=== PATIENT | female | born 1960 | race African-American/Black ===

== ENCOUNTER 2017-11-09 23:04 | Emergency (ER) | payer OTHER ==
[~2017-11-09] VITALS: Ht 160 cm; Wt 52.2 kg
--- NOTE | ~2017-11-09 | EKG ---
[place] [address] [facility] [place] [address] ELECTROCARDIOGRAM REPORT Name: MILADY NGUYEN [id number] Admission: 11/09/17 Attend Phys: Discharge: 11/10/17 Date of : 60 Report #: [id number] THIS REPORT FOR: //name// [facility] ED Test Date: 2017-11-09 Test Time: 23:16:18 Pat Name: MILADY NGUYEN Department: Room: Gender: F Zoning Assistant: [email or web address] : 1960 Requested By: Sybil Gaines Order Number: [id number] MD: Mike Gonzales Measurements Intervals [place] Rate: 58 P: 42 [place]: 108 QRS: 82 QRSD: 93 T: 55 QT: 448 QTc: 441 Interpretive Statements Sinus bradycardia Borderline T abnormalities, anterior leads Compared to ECG 08/16/2013 10:17:56 Short [place] interval now present T-wave abnormality now present Electronically Signed On 11-12-2017 8:19:43 CDT by Mike Gonzales [email or web address] <ELECTRONICALLY SIGNED> By: Mike Gonzales MD, [facility] 11/12/17818 15 Mike Gonzales MD, [facility] /EPI
[~2017-11-09 23:04] MED LIST: ALBUTEROL2.5 MG/0.5 IH; ALBUTEROL2.5 MG/31 IH; ALBUTEROL2.5 MG/31 INH; BACTRIM DS TAB1 EACH PO; CELEXA40 MG PO; NORVASC10 MG PO; PREDNISONE 20 M20 MG PO; SYMBICORT160 MCG/4. INH; VENTOLIN HFA 1818 GM INH
[2017-11-10 00:02] LABS: ABSOLUTE NEUTROPHILS 3.6 thou/uL (1.4-8.2); BASOPHILS 1.2 % (0.0-2.0); EOSINOPHILS 5.4 % (0.0-3.0); HEMATOCRIT 39.6 % (37.0-47.0); HEMOGLOBIN 13.3 gm/dL (12.0-15.0); MCH 29.1 pg (26.0-34.0); MCHC 33.6 g/dL (28.0-37.0); MCV 86.7 fL (80.0-100.0); MONOCYTES 10.8 % (1.0-8.0); PLATELET COUNT 173 thou/uL (150-400); POLYS 56.6 % (36.0-66.0); RBC 4.57 mil/uL (4.20-5.00); WBC 6.4 thou/uL (4.0-11.0)
[2017-11-10 00:09] LABS: ANION GAP 11 mmol/L (7-16); BUN 12 mg/dL (7-18); CALCIUM 9.1 mg/dL (8.5-10.1); CHLORIDE 103 mmol/L (98-107); CO2 23 mmol/L (21-32); GLUCOSE 107 mg/dL (74-106); POTASSIUM 3.7 mmol/L (3.5-5.1); SODIUM 137 mmol/L (136-145)
[2017-11-10 00:18] LABS: TROPONIN-I <0.06 ng/mL (<0.06)
[2017-11-10] MEDS ORDERED: PROVENTIL HFA6.7 G1 INH (00:39)
[2017-11-10] MEDS ORDERED: VALIUM5 MG PO (00:39)
[2017-11-10 01:04] VITALS: BP 156/98
== END 2017-11-10 01:05 | disposition home or self-care (01) ==
LOC: ER 23:04
PROVIDERS: Emergency Medicine
DX: F41.0 Panic disorder [episodic paroxysmal anxiety] (principal); J45.909 Unspecified asthma, uncomplicated; M54.41 Lumbago with sciatica, right side; I10 Essential (primary) hypertension; F32.9 Major depressive disorder, single episode, unspecified; F17.210 Nicotine dependence, cigarettes, uncomplicated; Z88.1 Allergy status to other antibiotic agents; Z88.0 Allergy status to penicillin; Z88.8 Allergy status to other drugs, medicaments and biological substances; Z98.890 Other specified postprocedural states

== ENCOUNTER 2019-06-07 18:52 | Emergency (ER) | payer MEDICARE, OTHER ==
[~2019-06-07] VITALS: Ht 160 cm; Wt 48.5 kg
[~2019-06-07 18:52] MED LIST changes: +PROVENTIL HFA6.7 G1 INH; +VALIUM5 MG PO
[2019-06-07] MEDS ORDERED: NORCO 5-325 TA1 EAC1 PO (20:44)
[2019-06-07 20:59] VITALS: BP 148/81
== END 2019-06-07 21:00 | disposition home or self-care (01) ==
LOC: ER 18:52
DX: S00.83XA Contusion of other part of head, initial encounter (principal); S30.0XXA Contusion of lower back and pelvis, initial encounter; M54.5 Low back pain; M54.6 Pain in thoracic spine; J44.9 Chronic obstructive pulmonary disease, unspecified; I10 Essential (primary) hypertension; F17.210 Nicotine dependence, cigarettes, uncomplicated; Z79.899 Other long term (current) drug therapy; Z88.1 Allergy status to other antibiotic agents; Z88.0 Allergy status to penicillin; Z88.8 Allergy status to other drugs, medicaments and biological substances; Y08.89XA Assault by other specified means, initial encounter; Y93.89 Activity, other specified; Y92.89 Other specified places as the place of occurrence of the external cause; Y99.8 Other external cause status

== ENCOUNTER 2020-02-01 21:15 | Emergency (ER) | payer OTHER ==
[~2020-02-01] VITALS: Ht 162.6 cm; Wt 49.0 kg
[~2020-02-01 21:15] MED LIST changes: +NORCO 5-325 TA1 EAC1 PO
[2020-02-01 22:08] LABS: HEMATOCRIT 47.5 % (37.0-47.0); HEMOGLOBIN 15.4 gm/dL (12.0-15.0); LYMPHOCYTES 24.6 % (24.0-44.0); MCH 29.4 pg (26.0-34.0); MCHC 32.5 g/dL (28.0-37.0); MCV 90.5 fL (80.0-100.0); MONOCYTES 9.7 % (1.0-8.0); PLATELET COUNT 225 thou/uL (150-400); POLYS 45.7 % (36.0-66.0); RBC 5.25 mil/uL (4.20-5.00); RDW 13.2 % (10.5-14.5); WBC 6.5 thou/uL (4.0-11.0)
[2020-02-01 22:18] LABS: ANION GAP 11 mmol/L (7-16); BUN 16 mg/dL (7-18); CALCIUM 9.1 mg/dL (8.5-10.1); CHLORIDE 105 mmol/L (98-107); CO2 23 mmol/L (21-32); CREATININE 1.1 mg/dL (0.6-1.0); GLUCOSE 93 mg/dL (74-106); POTASSIUM 4.1 mmol/L (3.5-5.1); SODIUM 139 mmol/L (136-145)
[2020-02-01 22:28] LABS: ALBUMIN 4.1 g/dL (3.4-5.0); SGOT 28 U/L (15-37); SGPT 22 U/L (30-65); TOTAL BILIRUBIN 0.5 mg/dL (0.2-1.0); TOTAL PROTEIN 7.5 g/dL (6.4-8.2); TROPONIN-I <0.06 ng/mL (<0.06)
[2020-02-01 22:43] LABS: BE(vivo) -1.5 mmol/L (-2 to +3); PCO2 33.6 mmHg (35.0-45.0); PO2 60.3 mmHg (80.0-100.0); pH 7.433 (7.360-7.450); sO2 92.1 % (92.0-98.0)
[2020-02-01] MEDS ORDERED: DOXYCYCLINE 10100 MG PO (23:46)
[2020-02-01] MEDS ORDERED: PREDNISONE 20 M20 MG PO (23:46)
[2020-02-01] MEDS ORDERED: ALBUTEROL2.5 MG/31 INH (23:46)
[2020-02-02 00:10] VITALS: BP 173/99
--- NOTE | 2020-02-02 07:48 | EKG ---
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: [facility] : 1960 Requested By: Rafael Medina Order Number: [id number] MD: Mike Gonzales Measurements Intervals [place] Rate: 75 P: 83 [place]: 143 QRS: 88 QRSD: 81 T: 73 QT: 411 QTc: 460 Interpretive Statements Sinus rhythm Right atrial abnormality Poor septal R wave progression Baseline wander in lead(s) V2 Compared to ECG 11/09/2017 23:16:18 Atrial abnormality now present Poor septal R wave progression is now present Electronically Signed On 02-02-2020 7:48:38 RULES EXAMINER by Mike Gonzales [email or web address] <ELECTRONICALLY SIGNED> By: Mike Gonzales MD, [facility] 02/02/20 0748 29 29 Mike Gonzales MD, [facility] /EPI
== END 2020-02-02 00:11 | disposition home or self-care (01) ==
LOC: ER 21:15
PROVIDERS: Emergency Medicine
DX: J44.1 Chronic obstructive pulmonary disease with (acute) exacerbation (principal); F17.210 Nicotine dependence, cigarettes, uncomplicated; I10 Essential (primary) hypertension; Z79.899 Other long term (current) drug therapy; Z88.0 Allergy status to penicillin; Z88.1 Allergy status to other antibiotic agents; Z88.8 Allergy status to other drugs, medicaments and biological substances; Z20.828 Contact with and (suspected) exposure to other viral communicable diseases